=== PATIENT | male | born 1945 | race Two or more races ===

== ENCOUNTER 2023-01-29 15:14 | Inpatient (IN) | payer MEDICARE, OTHER ==
[~2023-01-29] VITALS: Ht 172.7 cm; Wt 72.6 kg
[~2023-01-29 15:14] MED LIST: ATEN50TA PO; LITH600C PO; OLAN20TA3 PO; QUET100T PO; RANI300C PO; SIMV-49 PO; TAMS-12 PO
[2023-01-29] MEDS ORDERED: PANT40TA49 PO (16:26)
[2023-01-29] MEDS ORDERED: ALFU10TA10 PO (16:26)
[2023-01-29] MEDS ORDERED: VIT1CAPS44 PO (16:26)
[2023-01-29] MEDS ORDERED: OMEG-15 PO (16:26)
[2023-01-29] MEDS ORDERED: TRAZ-182 PO (16:26)
[2023-01-29] MEDS ORDERED: METO25TA3 PO (16:26)
[2023-01-29] MEDS ORDERED: ACET-2605 PO (16:26)
[2023-01-29] MEDS ORDERED: ASCO-352 PO (16:26)
[2023-01-29] MEDS ORDERED: APIX5TAB PO (16:26)
[2023-01-29] MEDS ORDERED: SENN-261 PO (16:26)
[2023-01-29] MEDS ORDERED: ROSU10TA2 PO (16:26)
[2023-01-29] MEDS ORDERED: BRIM10DR16 EACHEYE (16:26)
[2023-01-29] MEDS ORDERED: FINA5TAB11 PO (16:26)
[2023-01-29] MEDS ORDERED: VITA1TAB56 PO (16:26)
[2023-01-29] MEDS ORDERED: QUET100T PO ×2 (16:26)
[2023-01-29] MEDS ORDERED: DICL100G34 TP (16:26)
[2023-01-29] MEDS ORDERED: CHOL100043 PO (16:26)
[2023-01-29] MEDS ORDERED: NETA2.5D3 EACHEYE (16:26)
[2023-01-29 16:29] LABS: BASOPHILS % (AUTO) 0.9 % (0.0-2.0); EOSINOPHILS # (AUTO) 0.2 K/uL (0.0-0.7); EOSINOPHILS % (AUTO) 4.9 % (0.0-6.0); HEMATOCRIT 34 % (39-51); HEMOGLOBIN 11.3 g/dL (13.5-17.5); LYMPHOCYTES # (AUTO) 0.7 K/uL (0.8-4.8); LYMPHOCYTES % (AUTO) 15.1 % (20.0-44.0); MEAN CORPUSCULAR HEMOGLOBIN 33 PG (26.0-33.0); MEAN CORPUSCULAR HGB CONC 34 g/dl (31.0-36.0); MEAN CORPUSCULAR VOLUME 98 fL (80-96); MONOCYTES # (AUTO) 0.6 K/uL (0.1-1.30); MONOCYTES % (AUTO) 13.4 % (2.0-12.0); NEUTROPHILS # (AUTO) 3.1 K/uL (1.8-8.9); NEUTROPHILS % (AUTO) 65.7 % (43.0-81.0); PLATELET COUNT (AUTO) 213 K/uL (150-450); RED BLOOD CELL COUNT(AUTO) 3.45 MIL/uL (4.5-6.0); RED CELL DISTRIBUTION WIDTH 13.7 % (11.5-15.0); WHITE BLOOD COUNT (AUTO) 4.7 K/uL (4.3-11.0)
[2023-01-29 16:44] LABS: APPEARANCE,URINE CLEAR (CLEAR); BILIRUBIN,URINE NEGATIVE (NEGATIVE); BLOOD, URINE NEGATIVE Ery/uL (NEGATIVE); COLOR,URINE YELLOW (YELLOW); KETONES,URINE NEGATIVE (NEGATIVE); LEUKOCYTE ESTERASE ,URINE NEGATIVE (NEGATIVE); NITRITE, URINE NEGATIVE (NEGATIVE); PROTEIN,URINE NEGATIVE (NEGATIVE); UGLUCOSE NEGATIVE (NEGATIVE); UROBILINOGEN,URINE 0.2 EU/dL (0.2)
[2023-01-29 16:48] LABS: CALCIUM, SERUM 9.1 mg/dL (8.5-10.1); CARBON DIOXIDE 21 mmol/L (21-32); CHLORIDE 104 mmol/L (98-107); CREATININE 1.9 mg/dL (0.6-1.3); GLUCOSE 100 mg/dL (74-106); POTASSIUM 4.3 mmol/L (3.5-5.1); SODIUM SERUM 137 mmol/L (136-145); UREA NITROGEN, BLOOD 35 mg/dL (7-18)
[2023-01-29 17:02] LABS: ACETAMINOPHEN < 10 ug/ml (10-30); ALANINE AMINOTRANSFERASE 38 U/L (12-78); ALCOHOL, BLOOD < 3 mg/dL (0-10); ALKALINE PHOSPHATASE 126 U/L (46-116); ASPARTATE AMINOTRANSFERASE 32 U/L (15-37); BILIRUBIN,DIRECT 0.1 mg/dL (0.0-0.2); BILIRUBIN,TOTAL 0.3 mg/dL (0.2-1.0); TOTAL PROTEIN, SERUM 6.9 g/dL (6.4-8.2)
[2023-01-29 17:05] LABS: SALICYLATE 0.3 mg/dL (2.8-20.0)
[2023-01-29 17:30] LABS: AMPHETAMINE, URINE NEGATIVE (NEGATIVE); BARBITURATE, URINE NEGATIVE (NEGATIVE); BENZODIAZEPINE, URINE NEGATIVE (NEGATIVE); CANNABINOID, URINE NEGATIVE (NEGATIVE); COCCAINE, URINE NEGATIVE (NEGATIVE); OPIATE, URINE NEGATIVE (NEGATIVE); PHENCYCLIDINE SCREEN,URINE NEGATIVE (NEGATIVE)
[2023-01-29] MEDS: SENNOSIDES 8.6 MG TABLET PO SCH (18:00)
[2023-01-29] MEDS ORDERED: MAGNESIUM HYDROXIDE 30 ML UDC PO PRN (18:30)
[2023-01-29] MEDS ORDERED: MAG HYDROX/AL HYDROX/SIMETH 30 ML UDC PO PRN (18:30)
[2023-01-29] MEDS ORDERED: ACETAMINOPHEN 325 MG TABLET PO PRN (18:30)
[2023-01-29] MEDS ORDERED: BLOOD SUGAR DIAGNOSTIC 1 EACH STRIP IN ONE (20:30)
[2023-01-29] MEDS: ACETAMINOPHEN ES 500 MG TABLET PO SCH (21:06)
[2023-01-29] MEDS: ATORVASTATIN 10 MG TABLET PO SCH (21:06)
[2023-01-29] MEDS: TEMAZEPAM 7.5 MG CAPSULE PO PRN (21:47)
[2023-01-29 22:05] VITALS: BP 152/94; TEMP 98.1; O2SAT 100
[2023-01-30] MEDS: clonazePAM 0.5 MG TABLET PO PRN ×2 (01:50→13:23)
[2023-01-30 07:13] LABS: CHOLESTEROL 118 mg/dL (<200); HDL CHOLESTEROL 77 mg/dL (40-60); LDL 38 mg/dL (0-99); TRIGLYCERIDES 39 mg/dL (30-150)
[2023-01-30 07:16] LABS: ALANINE AMINOTRANSFERASE 34 U/L (12-78); ALBUMIN 3.8 g/dL (3.4-5.0); ALKALINE PHOSPHATASE 115 U/L (46-116); ASPARTATE AMINOTRANSFERASE 27 U/L (15-37); BILIRUBIN,TOTAL 0.4 mg/dL (0.2-1.0); CALCIUM, SERUM 9.3 mg/dL (8.5-10.1); CARBON DIOXIDE 22 mmol/L (21-32); CHLORIDE 109 mmol/L (98-107); CREATININE 1.7 mg/dL (0.6-1.3); GLUCOSE 96 mg/dL (74-106); POTASSIUM 4.1 mmol/L (3.5-5.1); SODIUM SERUM 142 mmol/L (136-145); TOTAL PROTEIN, SERUM 6.8 g/dL (6.4-8.2); UREA NITROGEN, BLOOD 35 mg/dL (7-18)
[2023-01-30 08:00] VITALS: BP 119/81; TEMP 98.7; O2SAT 96
[2023-01-30] MEDS: CHOLECALCIFEROL 1,000 UNIT TABLET (VIT D3) PO SCH (08:14)
[2023-01-30] MEDS: FINASTERIDE (5 MG) 5 MG TABLET PO SCH (08:15)
[2023-01-30] MEDS: ASCORBIC ACID 500 MG TABLET PO SCH ×2 (08:15→16:46)
[2023-01-30] MEDS: APIXABAN 5 MG TABLET PO SCH ×2 (08:17→17:08)
[2023-01-30] MEDS: METOPROLOL SUCCINATE 25 MG TAB.SR.24H PO SCH (08:19)
[2023-01-30] MEDS: ACETAMINOPHEN ES 500 MG TABLET PO SCH ×2 (08:20→21:07)
[2023-01-30] MEDS: DIVALPROEX SODIUM 125 MG CAP.SPRINK PO SCH ×2 (10:16→21:07)
[2023-01-30] MEDS: QUETIAPINE FUMARATE 100 MG TABLET PO SCH ×3 (10:17→21:07)
[2023-01-30 15:44] VITALS: BP 113/86; TEMP 98.7; O2SAT 96
[2023-01-30 16:00] VITALS: BP 113/86; TEMP 98.7; O2SAT 96
[2023-01-30] MEDS: SENNOSIDES 8.6 MG TABLET PO SCH (16:46)
[2023-01-30] MEDS: ALFUZOSIN 10 MG PO SCH (17:10)
[2023-01-30 20:47] VITALS: BP 128/86; TEMP 98.4; O2SAT 98
[2023-01-30] MEDS: ATORVASTATIN 10 MG TABLET PO SCH (21:07)
[2023-01-31] MEDS: clonazePAM 0.5 MG TABLET PO PRN (03:53)
[2023-01-31 08:00] VITALS: BP 150/87; TEMP 97.5; O2SAT 100
[2023-01-31] MEDS: QUETIAPINE FUMARATE 100 MG TABLET PO SCH ×3 (09:17→21:11)
[2023-01-31] MEDS: FINASTERIDE (5 MG) 5 MG TABLET PO SCH (09:17)
[2023-01-31] MEDS: ACETAMINOPHEN ES 500 MG TABLET PO SCH ×2 (09:17→21:11)
[2023-01-31] MEDS: CHOLECALCIFEROL 1,000 UNIT TABLET (VIT D3) PO SCH (09:17)
[2023-01-31] MEDS: ASCORBIC ACID 500 MG TABLET PO SCH ×2 (09:18→17:04)
[2023-01-31] MEDS: DIVALPROEX SODIUM 125 MG CAP.SPRINK PO SCH ×2 (09:18→21:11)
[2023-01-31] MEDS: METOPROLOL SUCCINATE 25 MG TAB.SR.24H PO SCH (09:18)
[2023-01-31] MEDS: APIXABAN 5 MG TABLET PO SCH ×2 (09:21→17:05)
[2023-01-31 16:00] VITALS: BP 154/93; TEMP 98.1; O2SAT 100
[2023-01-31] MEDS: SENNOSIDES 8.6 MG TABLET PO SCH (17:04)
[2023-01-31] MEDS: ALFUZOSIN 10 MG PO SCH (17:04)
[2023-01-31 20:44] VITALS: BP 123/87; TEMP 97.9; O2SAT 99
[2023-01-31] MEDS: ATORVASTATIN 10 MG TABLET PO SCH (21:12)
[2023-02-01 08:00] VITALS: BP 128/83; TEMP 97.7; O2SAT 95
[2023-02-01] MEDS: APIXABAN 5 MG TABLET PO SCH ×2 (08:27→16:34)
[2023-02-01] MEDS: DIVALPROEX SODIUM 125 MG CAP.SPRINK PO SCH ×2 (08:27→21:05)
[2023-02-01] MEDS: FINASTERIDE (5 MG) 5 MG TABLET PO SCH (08:27)
[2023-02-01] MEDS: QUETIAPINE FUMARATE 100 MG TABLET PO SCH ×3 (08:27→22:09)
[2023-02-01] MEDS: ASCORBIC ACID 500 MG TABLET PO SCH ×2 (08:27→16:33)
[2023-02-01] MEDS: ACETAMINOPHEN ES 500 MG TABLET PO SCH ×2 (08:27→21:06)
[2023-02-01] MEDS: CHOLECALCIFEROL 1,000 UNIT TABLET (VIT D3) PO SCH (08:30)
[2023-02-01] MEDS: METOPROLOL SUCCINATE 25 MG TAB.SR.24H PO SCH (08:31)
[2023-02-01 16:00] VITALS: BP 140/99; TEMP 97.8; O2SAT 98
[2023-02-01] MEDS: ALFUZOSIN 10 MG PO SCH (17:19)
[2023-02-01] MEDS: SENNOSIDES 8.6 MG TABLET PO SCH (17:20)
[2023-02-01 20:00] VITALS: BP 126/88; TEMP 98.4; O2SAT 98
[2023-02-01] MEDS: BRIMONIDINE TARTRATE OPHT SOLN 5 ML BOTTLE EACHEYE SCH (21:06)
[2023-02-01] MEDS: DORZOLAMIDE OPTH 2% 10 ML BOTTLE EACHEYE SCH (21:06)
[2023-02-01] MEDS: ATORVASTATIN 10 MG TABLET PO SCH (22:08)
[2023-02-02 06:35] LABS: BASOPHILS # (AUTO) 0.1 K/uL (0.0-0.2); BASOPHILS % (AUTO) 1.4 % (0.0-2.0); EOSINOPHILS # (AUTO) 0.2 K/uL (0.0-0.7); EOSINOPHILS % (AUTO) 6.2 % (0.0-6.0); HEMATOCRIT 39 % (39-51); HEMOGLOBIN 13.1 g/dL (13.5-17.5); LYMPHOCYTES # (AUTO) 1.3 K/uL (0.8-4.8); LYMPHOCYTES % (AUTO) 32.1 % (20.0-44.0); MEAN CORPUSCULAR HEMOGLOBIN 33 PG (26.0-33.0); MEAN CORPUSCULAR HGB CONC 34 g/dl (31.0-36.0); MEAN CORPUSCULAR VOLUME 98 fL (80-96); MONOCYTES # (AUTO) 0.5 K/uL (0.1-1.30); MONOCYTES % (AUTO) 13.9 % (2.0-12.0); NEUTROPHILS # (AUTO) 1.8 K/uL (1.8-8.9); NEUTROPHILS % (AUTO) 46.4 % (43.0-81.0); PLATELET COUNT (AUTO) 266 K/uL (150-450); RED BLOOD CELL COUNT(AUTO) 3.95 MIL/uL (4.5-6.0); RED CELL DISTRIBUTION WIDTH 13.4 % (11.5-15.0); WHITE BLOOD COUNT (AUTO) 3.9 K/uL (4.3-11.0)
[2023-02-02 07:04] LABS: CREATINE KINASE, TOTAL 439 U/L (39-308)
[2023-02-02 07:15] LABS: ALANINE AMINOTRANSFERASE 32 U/L (12-78); ALBUMIN 4.3 g/dL (3.4-5.0); ALKALINE PHOSPHATASE 132 U/L (46-116); ASPARTATE AMINOTRANSFERASE 24 U/L (15-37); BILIRUBIN,TOTAL 0.4 mg/dL (0.2-1.0); CALCIUM, SERUM 9.6 mg/dL (8.5-10.1); CARBON DIOXIDE 26 mmol/L (21-32); CHLORIDE 105 mmol/L (98-107); CREATININE 1.8 mg/dL (0.6-1.3); GLUCOSE 117 mg/dL (74-106); MAGNESIUM 2.1 mg/dL (1.8-2.4); PHOSPHORUS 4.6 mg/dL (2.5-4.9); POTASSIUM 4.1 mmol/L (3.5-5.1); SODIUM SERUM 139 mmol/L (136-145); TOTAL PROTEIN, SERUM 7.8 g/dL (6.4-8.2); UREA NITROGEN, BLOOD 40 mg/dL (7-18)
[2023-02-02 08:00] VITALS: BP 144/87; TEMP 97.7; O2SAT 99
[2023-02-02] MEDS: FINASTERIDE (5 MG) 5 MG TABLET PO SCH (08:19)
[2023-02-02] MEDS: DIVALPROEX SODIUM 125 MG CAP.SPRINK PO SCH ×2 (08:19→20:49)
[2023-02-02] MEDS: ACETAMINOPHEN ES 500 MG TABLET PO SCH ×2 (08:20→20:49)
[2023-02-02] MEDS: CHOLECALCIFEROL 1,000 UNIT TABLET (VIT D3) PO SCH (08:20)
[2023-02-02] MEDS: METOPROLOL SUCCINATE 25 MG TAB.SR.24H PO SCH (08:20)
[2023-02-02] MEDS: QUETIAPINE FUMARATE 100 MG TABLET PO SCH ×3 (08:20→21:01)
[2023-02-02] MEDS: ASCORBIC ACID 500 MG TABLET PO SCH ×2 (08:20→16:26)
[2023-02-02] MEDS: APIXABAN 5 MG TABLET PO SCH ×2 (08:21→16:27)
[2023-02-02] MEDS: DORZOLAMIDE OPTH 2% 10 ML BOTTLE EACHEYE SCH ×2 (08:22→20:52)
[2023-02-02] MEDS: BRIMONIDINE TARTRATE OPHT SOLN 5 ML BOTTLE EACHEYE SCH ×2 (08:22→20:52)
[2023-02-02 16:00] VITALS: BP 152/95; TEMP 98; O2SAT 98
[2023-02-02] MEDS: SENNOSIDES 8.6 MG TABLET PO SCH (17:44)
[2023-02-02] MEDS: ALFUZOSIN 10 MG PO SCH (17:44)
[2023-02-02] MEDS: ATORVASTATIN 10 MG TABLET PO SCH (21:06)
[2023-02-03 08:00] VITALS: BP 118/87; TEMP 97.8; O2SAT 98
[2023-02-03 08:07] LABS: CREATININE KINASE (CK),MB 7.4 ng/mL (0.0-10.4); PTH, INTACT 46 pg/mL (15-65)
[2023-02-03] MEDS: BRIMONIDINE TARTRATE OPHT SOLN 5 ML BOTTLE EACHEYE SCH ×2 (09:48→21:35)
[2023-02-03] MEDS: DORZOLAMIDE OPTH 2% 10 ML BOTTLE EACHEYE SCH ×2 (09:49→21:35)
[2023-02-03] MEDS: METOPROLOL SUCCINATE 25 MG TAB.SR.24H PO SCH (09:50)
[2023-02-03] MEDS: DIVALPROEX SODIUM 125 MG CAP.SPRINK PO SCH ×2 (09:50→21:33)
[2023-02-03] MEDS: CHOLECALCIFEROL 1,000 UNIT TABLET (VIT D3) PO SCH (09:50)
[2023-02-03] MEDS: FINASTERIDE (5 MG) 5 MG TABLET PO SCH (09:50)
[2023-02-03] MEDS: ACETAMINOPHEN ES 500 MG TABLET PO SCH ×2 (09:50→21:33)
[2023-02-03] MEDS: ASCORBIC ACID 500 MG TABLET PO SCH ×2 (09:51→18:24)
[2023-02-03] MEDS: QUETIAPINE FUMARATE 100 MG TABLET PO SCH ×3 (09:51→21:33)
[2023-02-03] MEDS: APIXABAN 5 MG TABLET PO SCH ×2 (09:53→18:23)
[2023-02-03 16:00] VITALS: BP 100/76; TEMP 98; O2SAT 100
[2023-02-03] MEDS: SENNOSIDES 8.6 MG TABLET PO SCH (18:24)
[2023-02-03] MEDS: ALFUZOSIN 10 MG PO SCH (18:25)
[2023-02-03 20:15] VITALS: BP 136/91; TEMP 98.1; O2SAT 97
[2023-02-03] MEDS: ATORVASTATIN 10 MG TABLET PO SCH (21:33)
[2023-02-04 08:00] VITALS: BP 102/80; TEMP 97.8; O2SAT 100
[2023-02-04] MEDS: ASCORBIC ACID 500 MG TABLET PO SCH ×2 (08:38→17:03)
[2023-02-04] MEDS: BRIMONIDINE TARTRATE OPHT SOLN 5 ML BOTTLE EACHEYE SCH ×2 (08:38→20:33)
[2023-02-04] MEDS: FINASTERIDE (5 MG) 5 MG TABLET PO SCH (08:38)
[2023-02-04] MEDS: CHOLECALCIFEROL 1,000 UNIT TABLET (VIT D3) PO SCH (08:38)
[2023-02-04] MEDS: DIVALPROEX SODIUM 125 MG CAP.SPRINK PO SCH ×2 (08:38→21:04)
[2023-02-04] MEDS: METOPROLOL SUCCINATE 25 MG TAB.SR.24H PO SCH (08:39)
[2023-02-04] MEDS: ACETAMINOPHEN ES 500 MG TABLET PO SCH ×2 (08:40→21:04)
[2023-02-04] MEDS: QUETIAPINE FUMARATE 100 MG TABLET PO SCH ×3 (08:40→21:04)
[2023-02-04] MEDS: APIXABAN 5 MG TABLET PO SCH ×2 (08:41→17:04)
[2023-02-04] MEDS: DORZOLAMIDE OPTH 2% 10 ML BOTTLE EACHEYE SCH ×2 (08:46→20:33)
[2023-02-04 16:00] VITALS: BP 155/99; TEMP 97.9; O2SAT 98
[2023-02-04] MEDS: SENNOSIDES 8.6 MG TABLET PO SCH (17:04)
[2023-02-04] MEDS: ALFUZOSIN 10 MG PO SCH (17:26)
[2023-02-04 20:48] VITALS: BP 133/90; TEMP 98.1; O2SAT 100
[2023-02-04] MEDS: ATORVASTATIN 10 MG TABLET PO SCH (21:04)
[2023-02-05] MEDS ORDERED: HALOPERIDOL LACTATE INJ 5 MG/ML VIAL IM STA (02:53)
[2023-02-05] MEDS ORDERED: LORAZEPAM INJ 2 MG/ML VIAL IM STA (02:53)
[2023-02-05] MEDS ORDERED: diphenhydrAMINE HCL 50 MG/ML VIAL IM STA (02:53)
[2023-02-05 08:00] VITALS: BP 97/76; TEMP 98.7; O2SAT 98
[2023-02-05] MEDS: METOPROLOL SUCCINATE 25 MG TAB.SR.24H PO SCH (09:00)
[2023-02-05] MEDS: BRIMONIDINE TARTRATE OPHT SOLN 5 ML BOTTLE EACHEYE SCH ×2 (09:26→20:29)
[2023-02-05] MEDS: DORZOLAMIDE OPTH 2% 10 ML BOTTLE EACHEYE SCH ×2 (09:26→20:44)
[2023-02-05] MEDS: QUETIAPINE FUMARATE 100 MG TABLET PO SCH ×3 (09:27→21:46)
[2023-02-05] MEDS: ASCORBIC ACID 500 MG TABLET PO SCH ×2 (09:27→17:02)
[2023-02-05] MEDS: CHOLECALCIFEROL 1,000 UNIT TABLET (VIT D3) PO SCH (09:27)
[2023-02-05] MEDS: DIVALPROEX SODIUM 125 MG CAP.SPRINK PO SCH ×2 (09:27→20:29)
[2023-02-05] MEDS: FINASTERIDE (5 MG) 5 MG TABLET PO SCH (09:27)
[2023-02-05] MEDS: APIXABAN 5 MG TABLET PO SCH ×2 (09:30→17:03)
[2023-02-05] MEDS: ACETAMINOPHEN ES 500 MG TABLET PO SCH ×2 (09:33→20:28)
[2023-02-05 11:06] LABS: *SPE A/G RATIO 1.4 (0.7-1.7); *SPE ALBUMIN 4.2 g/dL (2.9-4.4); *SPE ALPHA-1-GLOBULIN 0.3 g/dL (0.0-0.4); *SPE ALPHA-2-GLOBULIN 0.8 g/dL (0.4-1.0); *SPE BETA GLOBULIN 1.2 g/dL (0.7-1.3); *SPE GLOBULIN, TOTAL 3.1 g/dL (2.2-3.9); *SPE M-SPIKE Not Observed g/dL (Not Observed); *SPE PROTEIN TOTAL 7.3 g/dL (6.0-8.5); *SPEGAMMA GLOBULIN 0.8 g/dL (0.4-1.8)
[2023-02-05 16:00] VITALS: BP 126/85; TEMP 98.7; O2SAT 100
[2023-02-05] MEDS: ALFUZOSIN 10 MG PO SCH (17:01)
[2023-02-05] MEDS: SENNOSIDES 8.6 MG TABLET PO SCH (17:02)
[2023-02-05 20:48] VITALS: BP 141/94; TEMP 97.7; O2SAT 100
[2023-02-05] MEDS: ATORVASTATIN 10 MG TABLET PO SCH (21:46)
[2023-02-06 08:00] VITALS: BP 134/92; TEMP 97.8; O2SAT 96
[2023-02-06] MEDS: CHOLECALCIFEROL 1,000 UNIT TABLET (VIT D3) PO SCH (08:22)
[2023-02-06] MEDS: DIVALPROEX SODIUM 125 MG CAP.SPRINK PO SCH ×2 (08:22→21:57)
[2023-02-06] MEDS: FINASTERIDE (5 MG) 5 MG TABLET PO SCH (08:22)
[2023-02-06] MEDS: ACETAMINOPHEN ES 500 MG TABLET PO SCH ×2 (08:22→21:58)
[2023-02-06] MEDS: QUETIAPINE FUMARATE 100 MG TABLET PO SCH ×3 (08:22→21:57)
[2023-02-06] MEDS: ASCORBIC ACID 500 MG TABLET PO SCH ×2 (08:22→16:39)
[2023-02-06] MEDS: METOPROLOL SUCCINATE 25 MG TAB.SR.24H PO SCH (08:23)
[2023-02-06] MEDS: APIXABAN 5 MG TABLET PO SCH ×2 (08:24→16:41)
[2023-02-06] MEDS: BRIMONIDINE TARTRATE OPHT SOLN 5 ML BOTTLE EACHEYE SCH ×2 (08:26→21:59)
[2023-02-06] MEDS: DORZOLAMIDE OPTH 2% 10 ML BOTTLE EACHEYE SCH ×2 (08:27→21:58)
[2023-02-06] MEDS: clonazePAM 0.5 MG TABLET PO PRN (12:55)
[2023-02-06 16:09] VITALS: BP 138/90; TEMP 98.1; O2SAT 99
[2023-02-06] MEDS: SENNOSIDES 8.6 MG TABLET PO SCH (16:39)
[2023-02-06] MEDS: ALFUZOSIN 10 MG PO SCH (18:07)
[2023-02-06 21:39] VITALS: BP 146/89; TEMP 97.7; O2SAT 99
[2023-02-06] MEDS: ATORVASTATIN 10 MG TABLET PO SCH (21:58)
[2023-02-06] MEDS: TEMAZEPAM 7.5 MG CAPSULE PO PRN (21:59)
[2023-02-07 08:00] VITALS: BP 117/78; TEMP 98.6; O2SAT 97
[2023-02-07] MEDS: DORZOLAMIDE OPTH 2% 10 ML BOTTLE EACHEYE SCH (08:36)
[2023-02-07] MEDS: BRIMONIDINE TARTRATE OPHT SOLN 5 ML BOTTLE EACHEYE SCH (08:36)
[2023-02-07 08:37] VITALS: BP 117/78
[2023-02-07] MEDS: METOPROLOL SUCCINATE 25 MG TAB.SR.24H PO SCH (08:37)
[2023-02-07] MEDS: CHOLECALCIFEROL 1,000 UNIT TABLET (VIT D3) PO SCH (08:37)
[2023-02-07] MEDS: ASCORBIC ACID 500 MG TABLET PO SCH (08:39)
[2023-02-07] MEDS: ACETAMINOPHEN ES 500 MG TABLET PO SCH (08:39)
[2023-02-07] MEDS: QUETIAPINE FUMARATE 100 MG TABLET PO SCH (08:39)
[2023-02-07] MEDS: FINASTERIDE (5 MG) 5 MG TABLET PO SCH (08:39)
[2023-02-07] MEDS: DIVALPROEX SODIUM 125 MG CAP.SPRINK PO SCH (08:39)
[2023-02-07] MEDS: APIXABAN 5 MG TABLET PO SCH (08:40)
== END 2023-02-07 13:00 | disposition home or self-care (01) | DRG 885 ==
LOC: ER 15:43 → GPS 18:08
PROVIDERS: ADMIT Nurse Practitioner Psychiatric/Mental Health; ATTEND Student in an Organized Health Care Education/Training Program
DX: F29 Unspecified psychosis not due to a substance or known physiological condition (principal); N17.9 Acute kidney failure, unspecified; N18.9 Chronic kidney disease, unspecified; D68.59 Other primary thrombophilia; F03.93 Unspecified dementia, unspecified severity, with mood disturbance; F03.94 Unspecified dementia, unspecified severity, with anxiety; E87.20 Acidosis, unspecified; E78.00 Pure hypercholesterolemia, unspecified; Z79.01 Long term (current) use of anticoagulants; Z79.899 Other long term (current) drug therapy; I12.9 Hypertensive chronic kidney disease with stage 1 through stage 4 chronic kidney disease, or unspecified chronic kidney disease; D63.8 Anemia in other chronic diseases classified elsewhere; F20.9 Schizophrenia, unspecified; F41.9 Anxiety disorder, unspecified; H40.9 Unspecified glaucoma; K21.9 Gastro-esophageal reflux disease without esophagitis; F32.A Depression, unspecified; M19.90 Unspecified osteoarthritis, unspecified site; I48.0 Paroxysmal atrial fibrillation; M89.8X9 Other specified disorders of bone, unspecified site; N40.0 Benign prostatic hyperplasia without lower urinary tract symptoms; Z87.891 Personal history of nicotine dependence; N25.0 Renal osteodystrophy
CPT/HCPCS: 36415; 76770-TC; 80048-TC; 80053-TC; 80061-TC; 80076-TC; 80164-TC; 82550-TC; 82553; 82962-TC; 83735-TC; 83970; 84100-TC; 84155; 84165; 85025-TC; 87081-TC; 97116-TC; 97530-TC; G0480; J1200; J1630; J2060